=== PATIENT | male | born 1970 | race African-American/Black ===

== ENCOUNTER 2022-02-04 15:29 | Emergency (ER) | payer MEDICAID ==
[~2022-02-04] VITALS: Ht 180.3 cm; Wt 89.0 kg
[2022-02-04] MEDS ORDERED: lisinopril (15:50)
[2022-02-04] MEDS ORDERED: amlodipine (15:50)
[2022-02-04] MEDS ORDERED: lorazepam (15:50)
[2022-02-04] MEDS ORDERED: LEVETIRACETAM 1000MG PREMIX 100 ML IV ONE (16:30)
[2022-02-04 18:11] LABS: BASOPHILS % 0.6 % (0.0-2.0); EOSINOPHILS % 3.6 % (0.0-5.0); HEMATOCRIT. 38.7 % (42.0-52.0); HEMOGLOBIN. 12.8 g/dL (14.0-18.0); LYMPHOCYTES % 27.1 % (20.0-50.0); MEAN CORPUSCULAR HEMOGLOBIN 29.1 pg (28.0-32.0); MEAN CORPUSCULAR VOLUME 88.1 fL (80.0-94.0); MEAN PLATELET VOLUME 10.3 fl (7.4-10.4); MONOCYTES % 7.3 % (2.0-8.0); NEUTROPHILS % 61.4 % (40.0-76.0); PLATELET 182 x1000/uL (130-400); RED BLOOD CELL COUNT 4.39 mill/uL (4.7-6.1); RED CELL DISTRIBUTION WIDTH 15.7 % (11.6-14.6)
[2022-02-04 18:18] LABS: CHLORIDE 106 mEq/L (98-107)
[2022-02-04 18:26] LABS: ETHANOL BLOOD < 10 mg/dL
[2022-02-04 18:31] LABS: CLARITY URINE CLEAR (CLEAR); COLOR URINE YELLOW (YELLOW); KETONES URINE NEGATIVE (NEGATIVE); LEUKOCYTE ESTERASE URINE NEGATIVE (NEGATIVE); NITRITE URINE NEGATIVE (NEGATIVE); OCCULT BLOOD URINE NEGATIVE (NEGATIVE); PROTEIN URINE TRACE (NEGATIVE); SPECIFIC GRAVITY URINE 1.025 (1.005-1.030); UROBILINOGEN URINE 0.2 E.U./dL (0.2-1.0)
[2022-02-04 18:44] LABS: *AMPHETAMINES SCREEN URINE NEGATIVE (NEGATIVE); *BARBITURATES SCREEN URINE NEGATIVE (NEGATIVE); *BENZODIAZEPINES SCREEN URINE NEGATIVE (NEGATIVE); *COCAINE SCREEN URINE NEGATIVE (NEGATIVE); CANNABINOID URINE SCREEN NEGATIVE (NEGATIVE); METHADONE URINE SCREEN NEGATIVE (NEGATIVE); OPIATES URINE SCREEN NEGATIVE (NEGATIVE); PHENCYCLIDINE URINE SCREEN NEGATIVE (NEGATIVE)
[2022-02-04 19:10] VITALS: BP 124/75
== END 2022-02-04 19:10 | disposition home or self-care (01) ==
LOC: ER 15:29
DX: G40.909 Epilepsy, unspecified, not intractable, without status epilepticus (principal); I69.954 Hemiplegia and hemiparesis following unspecified cerebrovascular disease affecting left non-dominant side; R94.31 Abnormal electrocardiogram [ECG] [EKG]
CPT/HCPCS: 36415; 80053; 80305; 80320; 81003; 82962; 85025; 96365; 96366; 99284; J1953; G0480

== ENCOUNTER 2023-06-29 16:12 | Emergency (ER) | payer MEDICAID ==
[~2023-06-29] VITALS: Ht 185.4 cm; Wt 105.6 kg
[~2023-06-29 16:12] MED LIST: amlodipine; lisinopril; lorazepam
[2023-06-29 16:46] VITALS: BP 125/66; PULSE 70; RESP 16; TEMP 98.2; O2SAT 100
== END 2023-06-29 21:44 | disposition left against medical advice (07) ==
LOC: ER 16:12
DX: Z53.21 Procedure and treatment not carried out due to patient leaving prior to being seen by health care provider (principal)
CPT/HCPCS: 99281

== ENCOUNTER 2023-08-22 11:26 | Emergency (ER) | payer MEDICAID ==
[~2023-08-22] VITALS: Ht 185.4 cm; Wt 104.0 kg
[2023-08-22 12:03] VITALS: BP 111/59; PULSE 61; RESP 16; TEMP 98.5; O2SAT 100
[2023-08-22] MEDS ORDERED: CLOT15CR27 TP (13:29)
== END 2023-08-22 13:41 | disposition home or self-care (01) ==
LOC: ER 11:26
DX: B37.42 Candidal balanitis (principal); I10 Essential (primary) hypertension; E11.9 Type 2 diabetes mellitus without complications; Z86.73 Personal history of transient ischemic attack (TIA), and cerebral infarction without residual deficits; Z86.59 Personal history of other mental and behavioral disorders
CPT/HCPCS: 99282